=== PATIENT | female | born 1990 | race Hispanic/Latino ===

== ENCOUNTER 2025-01-01 17:08 | Emergency (ER) | payer BC ==
[~2025-01-01] VITALS: Ht 157.5 cm; Wt 124.3 kg
--- NOTE | 2025-01-01 17:34 | ERN ---
ED Note History of Present Illness Stated Complaint: NAUSEA Chief Complaint: Nausea,Vomiting,Diarrhea Time Seen by MD: 17:11 Time Seen by Midlevel: 17:11 Dictation: The patient is a 34-year-old female with a history of hypertension, hypothyroidism who presents to the emergency department with multiple complaints. Patient reports that she started having epigastric abdominal pain onset yesterday. Reports as burning sensation. Reports that she has also been having a chest pain and shortness of breath today. Reports that she started getting left arm numbness, reports headaches, left lower extremity swelling, dizziness, nausea, nonbloody diarrhea. Allergies: Coded Allergies: No Known Drug Allergies (Unverified Allergy, Unknown, 01/01/25) Past Medical History Past Medical History: Hypertension, Hypothyroid, Other Additional Past Medical Hx: lupus Surgical History: Tonsillectomy RN Note Reviewed/Agreed w/PFSH: Yes Review of System Dictation Constitutional: Negative for fever,chills, and weight loss Eyes: Negative for injury, pain,redness, and discharge ENT: Negative for injury,pain or swelling Cardiovascular: Negative for palpitations, and edema positive for chest pain Respiratory: Negative for cough, and wheezing, positive for shortness of breath Abdomen/GI: Negative for vomiting, and constipation positive for abdominal pain, nausea, vomiting Back: Negative for injury and pain : Negative for injury, bleeding and discharge MS/Extremity: Negative for injury and deformity Skin: Negative for rash, and discoloration Neuro: Negative for weakness, tingling, and seizure positive for left arm numbness positive for headache positive for dizziness Psych: Negative for suicide ideation, homicidal ideation, and hallucinations Initial Vital Sign VS Vital Signs Date Time Temp Pulse Resp B/P (MAP) Pulse Ox O2 Delivery O2 Flow Rate FiO2 01/01/25 17:10 98.6 97 18 161/104 97 Room Air 0 01/01/25 17:14 21 Physical Exam Dictation Vital Signs reviewed General Appearance: Alert, oriented x 3, no acute distress, well developed, nourished. Head and Face: non-traumatic. Eyes: PERRL, pink conjunctivas, eyelid no trauma, anterior chamber with arcus senilis. Ears: Pinnas intact and no signs of trauma or erythema ear canals clear and no discharge TM no erythema Nose: No discharge, no bleeding. Oropharynx: Mouth normal, tongue pink. pharynx clear,no erythema, tonsils no exudates, no abscesses noted, mucous membrane moist Neck: Supple, non-tender, no thyromegaly, no masses, no JVD, no bruits Breast:Deferred Chest:No tenderness, no crepitus, no paradoxical movement, no retractions Lungs:Clear, well-ventilated, symmetric, no rales, no wheezing, no rhonchi, no stridor, good breath sounds bilaterally Heart: Regular rate, regular rhythm, no murmur, no gallops Vascular: no peripheral edema, Abdomen: Soft, positive bowel sounds, nondistended, no guarding, Epigastric tenderness,, no rebound, no masses no hepatomegaly, no splenomegaly, no Nathan's sign, no hernias. Rectal: Deferred Genital: Deferred Neurological: Normal speech, motor function intact, sensory function intact , upper extremities equal in strength, lower extremities equal in strength, no facial droop Musculoskeletal: Neck nontender, full range of motion, back nontender, full range of motion, Extremities: nontender, full range of motion Skin: Color pink, dry, no turgor, no rash, no lacerations, no abrasions, no contusions. Lymphatic: Deferred Results (Laboratory/Radiology) Laboratory/Radiology Laboratory Tests Test 01/01/25 17:30 01/01/25 19:10 01/01/25 20:00 White Blood Count 12.9 K/uL (4.8-10.8) H Red Blood Count 4.92 MIL/uL (4.00-5.50) Hemoglobin 13.9 g/dL (12.0-16.0) Hematocrit 42.3 % (36-48) Mean Corpuscular Volume 86.0 fL (79-99) Mean Corpuscular Hemoglobin 28.3 pg (27.0-33.0) Mean Corpuscular Hemoglobin Concent 32.9 g/dL (32.0-36.0) Red Cell Distribution Width 14.3 % (11.0-15.5) Platelet Count 338 K/uL (130-400) Mean Platelet Volume 9.0 fL (7.5-10.5) Immature Granulocyte % (Auto) 0.4 % (0-1) Neutrophils (%) (Auto) 73.9 % (40.0-77.0) Lymphocytes (%) (Auto) 15.1 % (21.0-51.0) L Monocytes (%) (Auto) 6.7 % (3.0-13.0) Eosinophils (%) (Auto) 3.1 % (0.0-8.0) Basophils (%) (Auto) 0.8 % (0.0-5.0) Neutrophils # (Auto) 9.5 K/uL (1.8-7.7) H Lymphocytes # (Auto) 1.9 K/uL (1.0-4.8) Monocytes # (Auto) 0.9 K/uL (0.1-1.0) Eosinophils # (Auto) 0.40 K/uL (0.00-0.70) Basophils # (Auto) 0.10 K/uL (0.00-0.20) Absolute Immature Granulocyte (auto 0.05 K/uL (0-1) Nucleated Red Blood Cells 0.0 % (0.0-0.19) Sodium Level 136 mmol/L (136-145) Potassium Level 4.0 mmol/L (3.5-5.1) Chloride Level 101 mmol/L (101-111) Carbon Dioxide Level 31 mmol/L (21-32) Blood Urea Nitrogen 17 mg/dL (7-18) Creatinine 0.7 mg/dL (0.5-1.0) Glomerular Filtration Rate Calc 116 mL/min (>90) Random Glucose 97 mg/dL (70-105) Total Calcium 8.9 mg/dL (8.5-10.1) Magnesium Level 2.10 mg/dL (1.80-2.40) Total Bilirubin 0.4 mg/dL (0.2-1.0) Direct Bilirubin 0.1 mg/dL (0.0-0.3) Aspartate Amino Transf (AST/SGOT) 18 U/L (10-37) Alanine Aminotransferase (ALT/SGPT) 33 U/L (12-78) Alkaline Phosphatase 110 U/L (50-136) Total Creatine Kinase 70 U/L (21-232) Troponin I High Sensitivity 14 ng/L (4-50) 12 ng/L (4-50) Total Protein 7.6 g/dL (6.0-8.3) Albumin 3.5 g/dL (3.5-5.0) Lipase 34 U/L (16-77) Urine Color LIGHT-YELLOW (YELLOW) Urine Appearance CLEAR (CLEAR) Urine pH 5.5 (5.0-8.0) Urine Specific [place] 1.019 (1.001-1.031) Urine Protein NEGATIVE mg/dL (NEGATIVE) Urine Glucose (UA) NEGATIVE mg/dL (NEGATIVE) Urine Ketones NEGATIVE mg/dL (NEGATIVE) Urine Occult Blood NEGATIVE (NEGATIVE) Urine Nitrate NEGATIVE (NEGATIVE) Urine Bilirubin NEGATIVE mg/dL (NEGATIVE) Urine Urobilinogen 0.2 mg/dL (0.2-1.0) Urine Leukocyte Esterase NEGATIVE Saroj/uL Urine HCG, Qualitative NEGATIVE (NEGATIVE) REASON: swelling left ORDERING PHYSICIAN: JUDI DOMINGUEZ PROCEDURE: VENOUS UNI - US VENOUS DOPPLER UNILATERAL EXAM: US for Deep Venous Thrombosis, left Lower Extremity. CLINICAL HISTORY: Leg Pain and Swelling TECHNIQUE: Real-time ultrasound scan of the veins of the left lower extremity with color Doppler flow, spectral waveform analysis and compression. COMPARISON: None provided. FINDINGS: DEEP VEINS: The common femoral, superficial femoral, and popliteal veins are echolucent and compressible. There is normal color Doppler flow throughout. The visualized calf veins appear patent. SOFT TISSUES: No popliteal fossa cyst or other abnormalities. IMPRESSION: No deep venous thrombosis evident on left lower extremity examination. /[place] REASON: abd pain ORDERING PHYSICIAN: JUDI DOMINGUEZ PROCEDURE: ABDRUQLTD - US ABDOMINAL RUQ\LTD EXAM: US Abdomen, Right Upper Quadrant. CLINICAL HISTORY: abd pain TECHNIQUE: Right upper quadrant sonography performed with image documentation. COMPARISON: None provided. FINDINGS: LIVER: Fatty liver 19 cm. Hepatopetal flow velocity 18 cm/s GALLBLADDER: The gallbladder appears normal. No gallbladder wall thickening seen. No gallstones are evident. COMMON BILE DUCT: No dilation. PANCREAS: The visualized pancreas appears within normal limits. The distal pancreas is obscured by bowel gas. RIGHT KIDNEY: Unremarkable. Normal renal contours. No renal mass or calculus. No hydronephrosis. IMPRESSION: Fatty liver Normal appearance of the gallbladder. /[place] REASON: sob ORDERING PHYSICIAN: JUDI DOMINGUEZ [employer] PROCEDURE: CXR1VW - CHEST 1VW EXAM: CR Chest, 1 View. CLINICAL HISTORY: sob COMPARISON: None provided. FINDINGS: LUNGS: There is no mass, infiltrate, or acute pulmonary abnormality. PLEURAL SPACES: No pleural effusion or pneumothorax. MEDIASTINUM: The cardiomediastinal silhouette is within normal limits. BONES: No aggressive appearing osseous lesion seen. IMPRESSION: No acute cardiopulmonary pathology is evident. /[place] Labs Reviewed?: Yes EKG: (+) rhythm (Sinus rhythm) EKG Comment: Date:01/01/2025 Time:1710 Ventricular rate:98 WI interval:150 QRS duration:89 QT/QTc:356/455 EKG interpretation: Sinus rhythm Reviewed by ED Attending no STEMI ED Course ED Course Orders Procedure Category Date Status Time Cbc With Differential LAB 01/01/25 Complete 17:18 Chest 1vw RAD 01/01/25 Resulted 17:18 12 Lead Ekg Tracing- EKG 01/01/25 Logged Technical 17:18 0.9%Nacl 1000ml (Ns PHA 01/01/25 Complete 1000ml) 17:30 Ondansetron 4mg Inj PHA 01/01/25 Complete (Zofran 4mg Inj) 17:30 Magnesium LAB 01/01/25 Complete 17:18 Creatine Kinase, Total LAB 01/01/25 Complete 17:18 Troponin I High LAB 01/01/25 Complete Sensitivity 17:18 Urinalysis Profile LAB 01/01/25 Complete 17:18 Basic Metabolic Panel LAB 01/01/25 Complete 17:18 Hepatic Function Panel LAB 01/01/25 Complete 17:18 Acetaminophen 500mg PHA 01/01/25 Complete Tab (Tylenol 500mg T 17:30 Lipase LAB 01/01/25 Complete 17:18 ,Urine Test LAB 01/01/25 Complete 17:18 Pantoprazole 40mg Inj PHA 01/01/25 Complete (Protonix 40mg Inj 17:30 Us Abdominal Ruq\Ltd US 01/01/25 Resulted 18:10 Us Venous Doppler US 01/01/25 Resulted Unilateral 18:10 Troponin I High LAB 01/01/25 Complete Sensitivity 18:43 Current Medications Medications (Trade) Dose Ordered Sig/Karishma Route PRN Reason Start Time Stop Time Status Last Admin Dose Admin Acetaminophen (TYLenol 500MG TAB) 1,000 mg ONCE ONCE PO 01/01/25 17:30 01/01/25 17:31 DC 01/01/25 20:20 Ondansetron HCl (zoFRAN 4MG INJ) 4 mg ONCE ONCE IVP 01/01/25 17:30 01/01/25 17:31 DC 01/01/25 20:20 Pantoprazole Sodium (PROTonix 40MG INJ) 40 mg ONCE ONCE IVP 01/01/25 17:30 01/01/25 17:31 DC 01/01/25 20:20 Sodium Chloride 1,000 ml @ 0 mls/hr ONCE ONCE IV 01/01/25 17:30 01/01/25 17:31 DC 01/01/25 20:19 Vital Signs Date Time Temp Pulse Resp B/P (MAP) Pulse Ox O2 Delivery O2 Flow Rate FiO2 01/01/25 17:14 98.6 97 18 161/104 97 Room Air* 0 21 01/01/25 17:10 98.6 97 18 161/104 97 Room Air 0 HEART Score Response (Comments) Value History: Low suspicion (0) 0 EKG: Normal 0 Age: < 45yrs (0) 0 Risk Factors: 1-2 risk factors (+1) 1 Initial Troponin: Normal limit (0) 0 Total 1 Medical Decision Making MDM The patient is a 34-year-old female with a history of hypertension, hypothyroidism who presents to the emergency department with multiple complaints. Patient reports that she started having epigastric abdominal pain onset yesterday. Reports as burning sensation. Reports that she has also been having a chest pain and shortness of breath today. Reports that she started getting left arm numbness, reports headaches, dizziness, left lower extremity swelling, nausea, nonbloody diarrhea. CBC showed mild leukocytosis, no anemia, chemistry showed no electrolyte imbalance, negative liver enzymes, negative lipase, negative troponin x2. Chest x-ray showed no acute pathology. Ultrasound showed no evidence of DVT, right upper quadrant abdomen showed fatty liver but no signs of cholelithiasis. Urinalysis unremarkable Patient was reassessed. At this time reports she feels better. Patient with no active chest pain. On physical exam patient is in no acute distress, neurologically intact. Stable vital signs. Patient will be discharged to follow up with PCP. Differential diagnosis: Gastroenteritis, gastritis, dehydration, electrolyte imbalance, ACS, Need for hospitalization: Patient does not meet criteria for hospitalization. There are no social concerns with this patient. DX & DISP Disposition: Discharge Departure Impression: Primary Impression: Gastritis Additional Impressions: Headache, Mild dehydration Condition: Stable Scripts Pantoprazole Sodium (Pantoprazole Sodium) 20 Mg Tablet. 1 TAB PO DAILY for 30 Days, #30 TAB 0 Refills Prov: MURPHY DOMINGUEZKENDRICK GERARD 01/01/25 Additional Instructions: You lasts her unremarkable. Your imaging was on normal. Please take the medications you were prescribed. Follow up with your primary doctor in 1-2 days. Continue oral hydration at home and avoid any foods that exacerbate your symptoms. If anything worsens please return to ER. FOLLOW-UP WITH PRIMARY CARE PROVIDER IN 1 TO 2 DAYS. TAKE MEDICATIONS DIRECTED HERE IN THE EMERGENCY ROOM. OKAY TO CONTINUE HOME MEDICATIONS UNLESS OTHERWISE DISCUSSED DURING YOUR VISIT IN THE EMERGENCY ROOM TODAY. RETURN TO YOUR NEAREST EMERGENCY ROOM IF SYMPTOMS WORSEN OR IF THERE IS NO IMPROVEMENT. CALL 911 IF YOU NEED IMMEDIATE ASSISTANCE. TAKE TYLENOL [id number] NEEDED AND IF NO CONTRAINDICATIONS ARE PRESENT. INCREASE ORAL HYDRATION. A WOUND CULTURE OR URINE CULTURE WAS ORDERED HERE IN THE EMERGENCY ROOM DEPARTMENT PLEASE FOLLOW-UP WITH PRIMARY CARE PROVIDER AND ADVISE THEM TO GET REPEAT PORTS FROM OUR FACILITY. IF YOU HAD ANY ALKA WRAP/SPLINTS THAT WERE APPLIED HERE, PLEASE DO NOT REMOVE THEM UNTIL YOU SEE YOUR PRIMARY CARE OR SPECIALTY. Referrals: SELF,REFERRAL (PCP) Time of Disposition: 20:25 I have reviewed the case, and I agree with, Diagnosis and Plan ANGELICAJUDI GERARD Jan 01, 2025 17:34
[2025-01-01 17:39] LABS: IMMATURE GRANULOCYTE ABSOLUTE 0.05 K/uL (0-1); NUCLEATED RED BLOOD CELLS 0.0 % (0.0-0.19); PLATELET COUNT (AUTO) 338 K/uL (130-400); RED BLOOD CELL COUNT(AUTO) 4.92 MIL/uL (4.00-5.50); RED CELL DISTRIBUTION WIDTH 14.3 % (11.0-15.5); WHITE BLOOD COUNT (AUTO) 12.9 K/uL (4.8-10.8)
[2025-01-01 17:50] LABS: CREATININE 0.7 mg/dL (0.5-1.0); GLOMERULAR FILTR. RATE CALC 116.0 mL/min (>90); GLUCOSE,RANDOM 97.0 mg/dL (70-105); SODIUM SERUM 136.0 mmol/L (136-145); UREA NITROGEN, BLOOD 17.0 mg/dL (7-18)
[2025-01-01 17:59] LABS: ASPARTATE AMINOTRANSFERASE 18.0 U/L (10-37); CREATINE KINASE, TOTAL 70.0 U/L (21-232); TOTAL PROTEIN, SERUM 7.6 g/dL (6.0-8.3)
--- NOTE | 2025-01-01 18:02 | HMCIMG ---
EXAM: CR Chest, 1 View. CLINICAL HISTORY: sob COMPARISON: None provided. FINDINGS: LUNGS: There is no mass, infiltrate, or acute pulmonary abnormality. PLEURAL SPACES: No pleural effusion or pneumothorax. MEDIASTINUM: The cardiomediastinal silhouette is within normal limits. BONES: No aggressive appearing osseous lesion seen. IMPRESSION: No acute cardiopulmonary pathology is evident. /[place]
--- NOTE | 2025-01-01 19:13 | HMCIMG ---
EXAM: US for Deep Venous Thrombosis, left Lower Extremity. CLINICAL HISTORY: Leg Pain and Swelling TECHNIQUE: Real-time ultrasound scan of the veins of the left lower extremity with color Doppler flow, spectral waveform analysis and compression. COMPARISON: None provided. FINDINGS: DEEP VEINS: The common femoral, superficial femoral, and popliteal veins are echolucent and compressible. There is normal color Doppler flow throughout. The visualized calf veins appear patent. SOFT TISSUES: No popliteal fossa cyst or other abnormalities. IMPRESSION: No deep venous thrombosis evident on left lower extremity examination. /[place]
--- NOTE | 2025-01-01 19:33 | HMCIMG ---
EXAM: US Abdomen, Right Upper Quadrant. CLINICAL HISTORY: abd pain TECHNIQUE: Right upper quadrant sonography performed with image documentation. COMPARISON: None provided. FINDINGS: LIVER: Fatty liver 19 cm. Hepatopetal flow velocity 18 cm/s GALLBLADDER: The gallbladder appears normal. No gallbladder wall thickening seen. No gallstones are evident. COMMON BILE DUCT: No dilation. PANCREAS: The visualized pancreas appears within normal limits. The distal pancreas is obscured by bowel gas. RIGHT KIDNEY: Unremarkable. Normal renal contours. No renal mass or calculus. No hydronephrosis. IMPRESSION: Fatty liver Normal appearance of the gallbladder. /[place]
--- NOTE | 2025-01-01 20:00 | NUR ---
PATIENT GETTING A URINE SAMPLE FOR ME.
[2025-01-01 20:17] LABS: APPEARANCE,URINE CLEAR (CLEAR); GLUCOSE, URINE (UA) NEGATIVE (NEGATIVE); LEUKOCYTE ESTERASE ,URINE NEGATIVE Leu/uL (NEGATIVE); NITRATE,URINE NEGATIVE (NEGATIVE)
[2025-01-01] MEDS: 0.9%NACL 1000ML 1,000 ML IV ONE (20:19)
[2025-01-01 20:22] LABS: ADD UA MICROSCOPIC NO; HCG,QUALITATIVE URINE NEGATIVE (NEGATIVE); OCCULT BLOOD,URINE NEGATIVE (NEGATIVE)
[2025-01-01] MEDS ORDERED: PANT20TA18 PO (20:26)
[2025-01-01 20:37] VITALS: BP 111/76; PULSE 80; RESP 18; TEMP 98.3; O2SAT 96
--- NOTE | 2025-01-02 07:39 | EKG ---
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
== END 2025-01-01 21:11 | disposition home or self-care (01) ==
LOC: EDH 17:08
DX: K29.70 Gastritis, unspecified, without bleeding (principal); R51.9 Headache, unspecified; E86.0 Dehydration; E03.9 Hypothyroidism, unspecified; I10 Essential (primary) hypertension; M79.662 Pain in left lower leg; Z90.89 Acquired absence of other organs
CPT/HCPCS: 99285; 96374; 76705; 93971; 71045; 96375; 82550; 80076; 83735; 84484 ×2; 80048; 83690; 85025; 81003; 81025; 36415; 93005; J7030; J2405; J2470; 99284